=== PATIENT | female | born 1990 | race African-American/Black ===

== ENCOUNTER 2023-12-24 13:40 | Outpatient (AMB) | payer MEDICAID, SELFPAY ==
[2023-12-24 13:45] VITALS: BP 135/78; PULSE 57; O2SAT 97; BMI 46.3
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
== END 2023-12-24 14:20 | disposition home or self-care (01) ==
PROVIDERS: PCP Physician Assistant; Referring Provider Physician Assistant; Visit Provider Registered Nurse Emergency
DX: M53.3 Sacrococcygeal disorders, not elsewhere classified (principal); M47.816 Spondylosis without myelopathy or radiculopathy, lumbar region
CPT/HCPCS: 99204

== ENCOUNTER → 2023-12-24 13:40 | Outpatient (BNVA) | payer MEDICAID, SELFPAY | PROVIDERS: PCP Physician Assistant; Referring Provider Physician Assistant; Visit Provider Registered Nurse Emergency | DX: M47.816 Spondylosis without myelopathy or radiculopathy, lumbar region (principal); M53.3 Sacrococcygeal disorders, not elsewhere classified | CPT/HCPCS: 99212 ==

== ENCOUNTER 2024-03-16 09:44 | Outpatient (AMB) | payer MEDICAID, SELFPAY ==
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
[2024-03-16 10:02] VITALS: BP 136/86; PULSE 67; O2SAT 99
== END 2024-03-16 10:21 | disposition home or self-care (01) ==
PROVIDERS: PCP Physician Assistant; Visit Provider Registered Nurse Emergency
DX: M53.3 Sacrococcygeal disorders, not elsewhere classified (principal); M47.816 Spondylosis without myelopathy or radiculopathy, lumbar region
CPT/HCPCS: 99213

== ENCOUNTER → 2024-03-16 09:44 | Outpatient (BNVA) | payer MEDICAID, SELFPAY | PROVIDERS: PCP Physician Assistant; Visit Provider Registered Nurse Emergency | DX: M53.3 Sacrococcygeal disorders, not elsewhere classified (principal); M47.816 Spondylosis without myelopathy or radiculopathy, lumbar region | CPT/HCPCS: 99212 ==

== ENCOUNTER 2024-03-21 08:00 | Outpatient (RCR) | payer MEDICAID, SELFPAY ==
--- NOTE | 2024-03-13 09:36 | MHC.PT.EP ---
[facility] [place] Office [place] Office [place] Office [address] Luis Miguel Walker [address] [phone] F: [phone] F: [phone] F: [phone] F: [phone] Physical Therapy Plan of Care Date of Evaluation: 03/13/24 Date of Surgery: n/a Diagnosis: sacroccygeal disorder, lumbar spondylosis Assessment: Patient is a 33 year old female presenting to PT with complaints of pain in her low back. Pt reports onset of pain began 2022 due to lifting furniture. She presents today with impairments in pain, lumbar ROM, hip strength, posture. 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 Pt expresses correction goal of reducing pain, and is motivated to work towards this in PT. Clinical presentation today is most consistent with signs and sx associated with low back pain and pt will benefit from skilled PT 2 week x 4 weeks to address the following problems and impairments noted upon evaluation: pain, lumbar ROM, hip strength, posture. These problems limit the patient with the following functional activities: ADLs, sitting, standing, ambulating, bending, lifting. The prescribed treatment plan of care is medically necessary. Co-morbidities of none were identified and taken into considerations of plan of care. Pt was educated on HEP, role of PT, prognosis, POC. Frequency and Duration: The patient will be seen 2 x week x 4 weeks Short Term Goals: Pt will demonstrate improved pain at rest to < 4/10 in 2 weeks. Pt will demonstrate ability to move through lumbar ROM in available range with min to no pain in 2 weeks. Pt will demonstrate improved hip MMT strength by 1/3 grade in 2 weeks. [employer] Lieutenant Goals: Pt will demonstrate improved Efrain score by 10% in 4 weeks for improved functional mobility. Pt will demonstrate ability to sit with min to no pain in 4 weeks for improved tolerance to work. Pt will demonstrate ability to ambulate with min to no pain in 4 weeks for return to PLOF. Treatment Plan: Modalities to reduce pain, spasms and effusion. Manual therapy to restore motion and function. Therapeutic exercise to improve strength and flexibility. Neuromuscular re-education for posture and balance. Therapeutic activities to return to functional activities of daily living. Electronically signed by: Kimberly Hudson, PT, DPT, ATC Please sign and return to therapist. Thank you for your referral.
--- NOTE | 2024-04-03 08:17 | MHC.PT.DC ---
[facility] [place] Office [place] Office [place] Office [address] Luis Miguel Walker [address] [phone] F: [phone] F: [phone] F: [phone] F: [phone] Physical Therapy Discharge Report Diagnosis: sacroccygeal disorder, lumbar spondylosis Date of Surgery: n/a Date of Evaluation: 03/13/24 Date of Discharge: 04/03/24 Treatments to Date: 2 Cancellations to Date: 3 No Shows to Date: 0 Discharge Status: Patient Elected to Stop Physician Discontinued Tx Discharge Summary: Pt called stating she is having a procedure done and would like to stop PT. Therefore pt to be d/c per her request. Electronically signed by: Kimberly Hudson, PT, DPT, ATC Please sign and return to therapist. Thank you for your referral.
== END 2024-04-03 08:18 | disposition home or self-care (01) ==
LOC: HO.PTCHIC 08:00
PROVIDERS: PCP Physician Assistant; Visit Provider Registered Nurse Emergency
DX: M53.3 Sacrococcygeal disorders, not elsewhere classified (principal); M47.816 Spondylosis without myelopathy or radiculopathy, lumbar region
CPT/HCPCS: 97110; 97161

== ENCOUNTER 2024-05-23 06:11 | Outpatient (REF) | payer MEDICAID, SELFPAY ==
--- NOTE | ~2024-05-23 | FL_ITS ---
EXAMINATION: FL GUIDANCE ONLY HISTORY: M53.3 - Sacrococcygeal disorders, not elsewhere classified COMPARISON: None available. TECHNIQUE: Fluoroscopy time: 0.1 minutes. Cumulative Dose: 3.86 mGy. DAP: 0.0286 mGym2 Images: 2. FINDINGS: Images demonstrate a needle and contrast material in the region of the right sacroiliac joint. FL/FL guidance in treatment room IMPRESSION: Fluoroscopy during procedure. Please see procedure report for additional information. Electronically signed by: Mookie Hernandez MD 05/23/2024 10:01 AM EDT
== END 2024-05-23 06:12 | disposition home or self-care (01) ==
LOC: CF 06:11
PROVIDERS: Visit Provider Anesthesiology
DX: M53.3 Sacrococcygeal disorders, not elsewhere classified (principal); M47.816 Spondylosis without myelopathy or radiculopathy, lumbar region
CPT/HCPCS: 27096; J2003; J2795; Q9967

== ENCOUNTER 2024-05-23 08:52 | Outpatient (AMB) | payer MEDICAID, SELFPAY ==
[2024-05-23 09:01] VITALS: BP 129/74; PULSE 52; O2SAT 99
--- NOTE | 2024-05-23 09:01 | A.OFFVIS_ITS ---
Vital Signs 05/23/24 09:01 05/23/24 09:41 BP 129/74 137/82 Blood Pressure Location Lt brachial Rt brachial Position Sitting Sitting Pulse 52 58 Pulse Source Pulse Oximeter Pulse Oximeter Pulse Oximetry (%) 99 100 Oxygen Delivery Method Room Air Room Air Comment Pre-Procedure Post-Procedure Intake Visit Reasons: RIGHT DIAGNOSTIC SIJ INJECTION Allergies clonazepam [From Klonopin] Allergy (Verified 03/16/24 10:01) Spasms Physical Exam Vital Signs: Last Vital Signs Pulse 58 05/23/24 09:41 BP 137/82 05/23/24 09:41 Pulse Ox 100 05/23/24 09:41 Oxygen Delivery Method Room Air 05/23/24 09:41 Assessment & Plan Assessment & Plan (1) Sacroiliac joint dysfunction of right side: Code(s): M53.3 - Sacrococcygeal disorders, not elsewhere classified Category: Medical (2) Lumbar spondylosis: Code(s): M47.816 - Spondylosis without myelopathy or radiculopathy, lumbar region Category: Medical Plan Right diagnostic sacroiliac joint injection. Informed consent was thoroughly explained to the patient before the procedure.? The patient came to the operating room.? She was positioned prone on operating table with a pillow under her abdomen.? Time-out was performed delineating correct site and side of the procedure, nature of the injection, name and date of of the patient. The lower back and upper buttocks of the patient was prepped with ChloraPrep and draped with sterile utility towels.? C-arm was brought over the operating field the image of the right sacroiliac joint was demonstrated on the screen. Significant sacroiliac joint diastases was noted on the screen. Sacroiliac joint instability most likely is the cause of this patient's pain. Tilting machine contralateral to the left the anterior portion of sacroiliac joint was superimposed of the posterior portion of the sacroiliac joint. After that projection of the sacroiliac joint to the skin was injected with mixture of lidocaine 2 % and ropivacaine 0.5% to form a skin wheal. After that 22 gauge 3- 1/2 inch needle was inserted through the skin wheal and advanced to the right s acroiliac joint. After that injection of the contrast was performed delineating intra-articular spread of the contrast. After that injection of the ropivacaine 0.5% 5 cc was performed into the joint. After that the procedure was repeated on the left side in the mirroring fashion. The needle was removed sterile Band-Aid was applied. Patient tolerated the procedure well. Pain diary was given to the patient after the procedure. Orders: Orders FL guidance in treatment room Today M53.3 - Sacrococcygeal disorders, not elsewhere classified Coding Level of Care Code Procedure Only Diagnoses Sacroiliac joint dysfunction of right side M53.3 Lumbar spondylosis M47.816
[2024-05-23 09:41] VITALS: BP 137/82; PULSE 58; O2SAT 100
== END 2024-05-23 09:42 | disposition home or self-care (01) ==
LOC: HO.PMCPRC 08:52
PROVIDERS: PCP Physician Assistant; Visit Provider Anesthesiology
DX: M53.3 Sacrococcygeal disorders, not elsewhere classified (principal); M47.816 Spondylosis without myelopathy or radiculopathy, lumbar region
CPT/HCPCS: 27096

== ENCOUNTER 2024-05-26 11:06 | Outpatient (AMB) | payer MEDICAID, SELFPAY ==
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
[2024-05-26 11:13] VITALS: BP 133/84; PULSE 61; O2SAT 99; BMI 41.7
== END 2024-05-26 11:43 | disposition home or self-care (01) ==
LOC: HO.PMC 11:06
PROVIDERS: PCP Physician Assistant; Visit Provider Registered Nurse Emergency
DX: M47.816 Spondylosis without myelopathy or radiculopathy, lumbar region (principal); M54.9 Dorsalgia, unspecified; M53.3 Sacrococcygeal disorders, not elsewhere classified
CPT/HCPCS: 99213

== ENCOUNTER → 2024-05-26 11:06 | Outpatient (BNVA) | payer MEDICAID, SELFPAY | PROVIDERS: PCP Physician Assistant; Visit Provider Registered Nurse Emergency | DX: M47.816 Spondylosis without myelopathy or radiculopathy, lumbar region (principal); M54.9 Dorsalgia, unspecified; M53.3 Sacrococcygeal disorders, not elsewhere classified | CPT/HCPCS: 99212 ==